=== PATIENT | female | born 1970 | race Caucasian/White ===

== ENCOUNTER 2016-12-29 14:04 | Emergency (ER) | payer BC ==
[2016-12-29] MEDS ORDERED: KETOROLAC TROMETHAMINE 60 MG/2 ML VIAL IM ONE ×2 (14:20→14:23)
--- NOTE | 2016-12-29 14:37 | ERNOTE ---
Back Pain ER HPI Date of Service: 12/29/16 Time Seen by Provider: 12/29/16 14:15 Source: patient Exam Limitations: no limitations Immunizations: IMMUNIZATION HX History of Influenza Vaccine No Hx Pneumococcal Vaccination No Allergies/Adverse Reactions: Allergies Sulfa (Sulfonamide Antibiotics) [Sulfa(Sulfonamide Antibiotics)] Allergy ( Verified 12/29/16 14:12) amoxicillin trihydrate [From Augmentin] Adverse Reaction (Intermediate, Verified 12/29/16 14:12) thrush potassium clavula *RETIRED-02/07/13 [From Augmentin] Adverse Reaction ( Intermediate, Verified 12/29/16 14:12) thrush sulfamethoxazole [From Bactrim] Adverse Reaction (Intermediate, Verified 14:12) thrush trimethoprim [From Bactrim] Adverse Reaction (Intermediate, Verified 12/29/16 14 :12) thrush Home Medications: HOME MEDICATIONS Pramipexole Di-HCl [Mirapex] 0.5 mg PO DAILY 11/07/12 [Last Taken Unknown] Pramipexole Di-HCl [Mirapex] 1 mg PO HS 11/07/12 [Last Taken Unknown] Furosemide [Lasix] 20 mg PO DAILY 12/29/16 [Last Taken Unknown] Zolpidem Tartrate [Ambien] 10 mg PO HS PRN 12/29/16 [Last Taken Unknown] Narrative: Pt. comes in with c/o RLQ and R flank pain that is aggravated with ambulation. Pt. denies any fever, SOB, CP, vomiting, diarrhea, constipation, or alleviating factors despite taking gabapentin just prior to arrival. Pt. states that the pain is accompanied by nausea. Review of Systems - Review of Systems Constitutional: Present: no symptoms reported. Absent: recent illness, fever, chills, weakness, fatigue, malaise EYE: Present: no symptoms reported ENT: Present: no symptoms reported Respiratory: Present: no symptoms reported. Absent: shortness of breath, cough , wheezing Cardiology: Present: no symptoms reported. Absent: chest pain, palpitations, edema Gastrointestinal/Abdominal: Present: nausea, abdominal pain - RLQ. Absent: vomiting, diarrhea Genitourinary: Present: no symptoms reported Musculoskeletal: Present: back pain - R flank. Absent: joint pain Skin: Present: no symptoms reported. Absent: rash, change in hair/nails Neurological: Present: no symptoms reported. Absent: headache, dizziness/light- headedness, numbness, tingling All Other Systems: All systems neg except as marked - Patient's Past Medical History Patient History - Medical: No pertinent hx Patient History - Cardiac/Respiratory: Hypertension, Hyperlipidemia Patient History - Cancer: No Hx of Cancer Patient History - Other: None - Social History Living Situations: home Abuse History: No History of abuse Psych History: No pertinent hx Smoking Status: Current every day smoker Alcohol Use: none Drug Use: none - Immunizations Hx Pneumococcal Vaccination: No History of Influenza Vaccine: No Physical Exam - Physical Exam General Appearance: Present: wd/wn, alert, no apparent distress Eye Exam: Normal inspection: bilateral, PERRL: bilateral, EOMI: bilateral Ears, Nose, Throat: Present: normal ENT inspection, normal pharynx Neck: Present: normal inspection, nontender. Absent: lymphadenopathy (R), lymphadenopathy (L) Respiratory: Present: no respiratory distress, normal breath sounds, no accessory muscle use, chest nontender, lungs clear Cardiovascular/Chest: Present: regular rate, rhythm, no murmur, normal peripheral pulses Gastrointestinal/Abdominal: Present: normal bowel sounds, nondistended, soft, no organomegaly, tenderness - R lateral mid side tenderness. Absent: rebound, McBurney sign, Obturator sign, Hebert sign Back Exam: Present: normal range of motion, no vertebral tenderness, CVA tenderness (R) - mild Extremity Exam: Present: normal inspection, non-tender, normal range of motion, no edema Neurological Exam: Present: alert, oriented, normal mood/affect, no motor/ sensory deficits Skin Exam: Present: normal color, warm/dry. Absent: pallor, skin rash ED Progress - Results and Orders Patient's Lab Results:: I have reviewed the patient's lab results. - Vital Signs Patient's Vital Signs:: I have reviewed the patient's vital signs. Vital Signs: Vital Signs 12/29/16 14:07 Temperature 36.3 C L Pulse Rate 83 Respiratory 12 Rate Blood Pressure 160/88 O2 Sat by Pulse 100 Oximetry - CT/Ultrasound CT/Ultrasound Narrative: CT notable for R ureteral dilatation most likely recently passed stone. - Progress/Reassessment Chief Complaint: Back Pain Departure Clinical Impression: Ureteral stone - Departure Disposition: Home self-care Condition: Good Instructions: Kidney Stones, [id number] Additional Instructions: Please follow up with primary provider in 2-3 days if symptoms do not improve. Increase water intake and may take Ibuprofen up to 600mg every 6 hours for pain. Referrals: Abi Gordon MD [Primary Care Provider] -
[2016-12-29 14:42] LABS: Hematocrit 36.2 % (37.0-47.0); Hemoglobin 12.6 gm/dL (12.5-16.0); Mean Cell Volume 95.3 fl (78-100); Mean Corpuscular Hemoglobin 33.2 pg (27-31); Mean Corpuscular Hgb Conc 34.8 g/dl (32-36); Mean Platelet Volume 9.4 fl (6.0-9.5); Neutrophil # 4.7 K/mm3 (1.3-6.0); Platelet Count 277 K/mm3 (150-450); Red Cell Distribution Width 12.4 % (11.5-14.0); White Blood Count 6.9 K/mm3 (4.0-10.5)
[2016-12-29 14:45] LABS: Urine Bilirubin Negative (NEGATIVE); Urine Blood 50 /ul (NEGATIVE); Urine Ketone Negative (NEGATIVE); Urine Nitrite Negative (NEGATIVE); Urine Protein Negative (NEGATIVE); Urine Urobilinogen Normal (NORMAL)
[2016-12-29 14:55] LABS: Urine Color Yellow
[2016-12-29 14:56] LABS: Urine Appearance Clear; Urine Bacteria None Seen; Urine RBC TRACE /hpf (0-5); Urine WBC None Seen /hpf (0-5)
[2016-12-29 14:57] LABS: Albumin * 3.7 gm/dl (3.4-5.0); Anion Gap 11.9 mmol/L (6.8-13.8); BUN/Creatinine Ratio 18.6 (9.0-21.6); Bilirubin, Total 0.3 mg/dL (0.0-1.1); Calcium * 9.1 mg/dL (7.9-10.9); Carbon Dioxide 27.4 mmol/L (24-32.6); Potassium 3.3 mmol/L (3.4-4.6); Total Protein 7.1 gm/dL (6.2-8.2)
[2016-12-29 17:54] VITALS: BP 155/84
== END 2016-12-29 16:00 | disposition home or self-care (01) ==
LOC: ER 14:04
DX: N20.1 Calculus of ureter (principal); F17.200 Nicotine dependence, unspecified, uncomplicated; I10 Essential (primary) hypertension

== ENCOUNTER 2017-07-23 06:46 | Day surgery (SDC) | payer BC ==
[~2017-07-23 06:46] MED LIST: RINGER'S SOLUTION,LACTATED 1,000 ML IV PRN; ceFAZolin SODIUM 1 GM VIAL IV PRN
[2017-07-23 07:15] LABS: Hematocrit 36.2 % (37.0-47.0); Hemoglobin 12.7 gm/dL (12.5-16.0); Mean Corpuscular Hemoglobin 33.3 pg (27-31); Mean Corpuscular Hgb Conc 35.1 g/dl (32-36); Mean Platelet Volume 9.2 fl (6.0-9.5); Neutrophil # 3.6 K/mm3 (1.3-6.0); Neutrophil % 63.9 % (42-75.0); Platelet Count 264 K/mm3 (150-450); Red Blood Count 3.81 M/mm3 (4.2-5.4); Red Cell Distribution Width 12.3 % (11.5-14.0); White Blood Count 5.7 K/mm3 (4.0-10.5)
[2017-07-23 07:18] LABS: Albumin * 3.7 gm/dl (3.4-5.0); Anion Gap 8.4 mmol/L (6.8-13.8); BUN/Creatinine Ratio 21.8 (9.0-21.6); Bilirubin, Total 0.4 mg/dL (0.0-1.1); Ca. Corrected For Albumin 8.9 mg/dL (8.4-10.2); Carbon Dioxide 30.2 mmol/L (24-32.6); Potassium 3.6 mmol/L (3.4-4.6); Total Protein 7.4 gm/dL (6.2-8.2)
[2017-07-23] MEDS ORDERED: RINGER'S SOLUTION,LACTATED 1,000 ML IV ONE ×2 (07:36→10:00)
[2017-07-23] MEDS ORDERED: BUPIVACAINE HCL/PF 30 ML VIAL IJ ONE (11:40)
[2017-07-23] MEDS ORDERED: oxyCODONE HCL/ACETAMINOPHEN 1 TAB TABLET PO ONE ×3 (12:10→15:00)
[2017-07-23] MEDS ORDERED: RINGER'S SOLUTION,LACTATED 1,000 ML IV PRN (12:10)
[2017-07-23] MEDS ORDERED: IBUPROFEN 800 MG TABLET PO ONE ×2 (12:10→13:50)
--- NOTE | 2017-07-23 12:12 | OR ---
Operative Report - Dictated Report Narrative: DATE OF PROCEDURE: 07/23/2017 PROCEDURE: 1. Total laparoscopic hysterectomy, bilateral salpingectomy 2. Lysis of adhesion (30 min) 3. Diagnostic cystoscopy. ANESTHESIA: General, endotracheal intubation. PREOPERATIVE DIAGNOSES: 1. Menorrhagia 2. Dysmenorrhea 3. Dyspareunia 4. Chronic pelvic pain 5. Enlarged uterus 6. Left ovarian cysts 7. Status post upper abdominal hernia repair with mesh; and lower back fusion L4 -S1 with lower abdominal incision 8. Status post laparoscopy for left fallopian tube with fluid and adhesions to bowel POSTOPERATIVE DIAGNOSES: 1. Menorrhagia 2. Dysmenorrhea 3. Dyspareunia 4. Chronic pelvic pain 5. Mildly enlarged uterus 6. Left ovarian simple cysts 1.5 cm x 2 7. Status post upper abdominal hernia repair with mesh; and lower back fusion L4 -S1 with lower abdominal incision 8. Status post laparoscopy for left fallopian tube with fluid and adhesions to bowel SURGEON: Idris Fiore M.D. CARPENTER PACKING: Carline Kay FINDINGS: 1. Uterus mildly enlarged, sounded to 9 cm, both ovaries were normal except left ovary with two simple cysts 1.5 cm, both fallopian tubes were normal but with evidence of tubal ligations. 2. There were adhesions between the sigmoid colon and the left adnexa, omentum to the fundus of the uterus, omentum adhesions in the right lateral abdominal wall and omentum adhesions in the upper abdomen in the area of previous upper abdominal hernia repair. 3. On cystoscopy, the bladder appeared intact and bilateral ureteral jets were seen. SPECIMENS: Uterus, cervix, both tubes (Left tube detached) DRAINS: None. URINE OUTPUT: 100 ml BLOOD LOSS: 50 ml INTRAOPARATIVE IV FLUIDS: 1800 ml COMPLICATIONS: None. DESCRIPTION OF PROCEDURE: The patient consented to the operation and was taken to the operating room. She was placed on the operating table supine. SCDs were placed on her lower extremities. General anesthesia was induced. Two grams of ancef was given by IV prior to anesthesia induction. She was repositioned in the dorsal lithotomy position. Her right arm was tucked at her side under the drape. Exam under anesthesia revealed a mildly enlarged uterus with minimal descent and with no adnexal mass. The abdomen was prepped with Chloraprep and the vagina was prepped with Betadine. She was draped in the usual sterile fashion. A time-out procedure was conducted to confirm the correct patient for the correct procedure. After time-out, a Mckeon catheter was placed into the bladder. A bivalve speculum was placed into the vagina. The vagina and the cervix were prepped with Betadine one more time. The anterior cervix was grasped with a single-tooth tenaculum. The uterus was sounded to 9 cm. A large VCare uterine manipulator was inserted into the uterine cavity. The balloon was inflated with 5 cc of air. The single-tooth tenaculum was removed. [place] speculum was removed. The upper VCare cup was advanced into the vagina to hug the cervix. The lower VCare cup was advanced into the vagina to align with the upper VCare cup and to provide pneumoperitoneum for the procedure. The lower VCare cup was fastened to the uterine manipulator. The surgeon then changed gloves and attention was paid to the abdomen. A small vertical incision was made at the upper edge of the umbilicus. A Veress needle was inserted into the abdominal cavity. Intraabdominal placement was confirmed with a saline drop test and with low entry pressure of 4 mmHg. The abdomen was insufflated with CO2 gas to an intraabdominal pressure of 15 mmHg. The Veress needle was removed. A 5 mm trocar with the laparoscope was inserted through the umbilicus incision into the abdomen. Intraabdominal placement was confirmed with the laparoscope. Survey of the entry site revealed no trauma to the underlying structures. The patient was then placed in Trendelenburg position. Three 5 mm trocars were placed in the lower abdomen. Both left and the right lower quadrant trocars (5 mm) were placed superior and medial to the anterior superior iliac spine to avoid vessels and nerves. A suprapubic trocar ( 5 mm) was placed in the midline. All trocars were placed under the direct visualization of the laparoscope. Survey of the abdomen and pelvis revealed the findings noted above. The omentum at the uterine fundus was released with a Thunderbeat. Attention was now turned to the left side. The left fallopian tube was elevated. Lysis of adhesions were carried out to release the left fallopian tube from the sigmoid colon and the pelvic side wall. The mesosalpinx was divided with the Thunderbeat to the tubal ligation area. This resulted in the removal of the distal portion of the tube and it was placed in the cul-de-sac for later retrieval. The uteroovarian ligament was divided with the Thunderbeat and the division was carried on the broad ligament through the round ligament towards the lower uterine segment. The course of the left ureter was not identified, but believed to be away from the surgical field. The broad ligament incision was into the anterior leaf and the posterior leaf. Anterior leaf of the broad ligament was dissected towards the bladder uterine reflection. The posterior leaf of the broad ligament was dissected towards the uterosacral ligament. The left uterine vessel was isolated and divided with the Thunderbeat. The lower uterine segment was dissected to free the bladder down. The cardinal ligament complex was divided with the Thunderbeat to the level of vaginal cervical junction. Attention was now turned to the right side. The right fallopian tube was elevated. The mesosalpinx was divided with the Thunderbeat. The division was carried to the cornual region. The uteroovarian ligament was divided with the Thunderbeat and the division was carried on the broad ligament through the round ligament towards the lower uterine segment. The course of the right ureter was identified and protected. The broad ligament incision was into the anterior leaf and the posterior leaf. The anterior leaf of the broad ligament was dissected towards the bladder uterine reflection and to meet with the opposite dissection point at the midline. The posterior leaf of the broad ligament was dissected towards the uterosacral ligament. The right uterine vessel was isolated, and divided with the Thunderbeat. The cardinal ligament complex was divided with the Thunderbeat to the level of vaginal cervical junction. The vaginal fornix was seen well through the VCare cup. The Thunderbeat was used to make an anterior colpotomy over the VCare cup groove. Entry into the vagina was without complications. A circumferential incision was made along the vaginal cervical junction using the VCare cup groove as a guide. Bilateral uterosacral ligament was divided. The cervix was completely divided from the vagina. The surgeon moved to the vaginal area to retrieve the specimen. The VCare uterine manipulator was removed. The cervix was grasped with a single tooth tenaculum. The uterus, cervix and right tube were removed through the vagina in one piece. The detached left tube was also removed through the vagina. The vagina was packed with 2 moist laps to keep the pneumoperitoneum. The surgeon then changed gloves and attention was paid back to the abdomen. The pelvis was thoroughly irrigated with saline. The vaginal opening was closed transversely with 0 Vicryl Endoknot suture in an interrupted fashion using intracorporeal suturing technique and extracorporeal knot tying. The uterosacral ligament was sutured to the vaginal cuff corner for cuff support. The pelvis was irrigated with saline. Extra fluid was suctioned out from the abdomen and pelvis. There was hemostasis in all vessel pedicles. The patient was taken out of Trendelenburg. Three lower abdominal trocars were removed. The abdomen was deflated. The trocar at the umbilicus was removed with the laparoscope. The skin incision was closed with 4-0 Monocryl suture and 2 to 3 cc of 0.25% Marcaine was infiltrated around each incision for post op pain management. The incisions were covered with Steri-Strips. A diagnostic cystoscopy was performed. Vaginal packing was removed and the Mckeon catheter was removed. A 70-degree cystoscope was introduced through the urethra into the bladder. Exam of the bladder revealed the bladder was intact. There were urine jets coming out from the left as well as the right ureteral orifice, confirming the integrity of ureters. The cystoscope was removed. The Mckeon catheter was not replaced. The patient tolerated the procedure well. All counts were correct and the patient was taken to the recovery room in stable condition. Idris Fiore MD
[2017-07-23 16:05] VITALS: BP 128/65
== END 2017-07-23 06:47 | disposition home or self-care (01) ==
LOC: AMB 06:46
PROVIDERS: ATTEND Obstetrics & Gynecology
PROC: 0UT94ZZ Resection of Uterus, Percutaneous Endoscopic Approach (ICD-10-PCS; principal; 2017-07-23)
PROC: 0UT24ZZ Resection of Bilateral Ovaries, Percutaneous Endoscopic Approach (ICD-10-PCS; 2017-07-23)
PROC: 0UT74ZZ Resection of Bilateral Fallopian Tubes, Percutaneous Endoscopic Approach (ICD-10-PCS; 2017-07-23)
PROC: 0DNU4ZZ Release Omentum, Percutaneous Endoscopic Approach (ICD-10-PCS; 2017-07-23)
DX: N92.0 Excessive and frequent menstruation with regular cycle (principal); N94.6 Dysmenorrhea, unspecified; N94.10 Unspecified dyspareunia; R10.2 Pelvic and perineal pain; N85.2 Hypertrophy of uterus; N83.202 Unspecified ovarian cyst, left side; I10 Essential (primary) hypertension; F17.210 Nicotine dependence, cigarettes, uncomplicated; Z68.34 Body mass index [BMI] 34.0-34.9, adult